=== PATIENT | male | born 1965 | race Caucasian/White ===

== ENCOUNTER 2016-10-09 10:50 | Inpatient (IN) ==
[2016-10-04 14:19] LABS: Appearance,Urine CLEAR; Bilirubin,Urine NEG (NEG); Color,Urine YELLOW; Glucose,Urine (UA) NEGATIVE (NEG); Leukocyte Esterase,Urine NEG /uL (NEG); Nitrate,Urine NEG (NEG); Protein,Urine NEG (NEG); Specific Gravity,Urine 1.027 (1.000-1.035); Urine Blood NEG mg/dL (<0.03); Urobilinogen,Urine NEG (NEG)
[2016-10-04 16:04] LABS: Blood Urea Nitrogen 19 mg/dl (6-20)
[2016-10-04 16:11] LABS: Basophils # (Auto) 0 K/mcL (0.0-0.3); Basophils % (Auto) 0.3 % (0.0-2.0); Eosinophils # (Auto) 0.1 K/mcL (0.0-0.7); Eosinophils % (Auto) 2.2 % (0.0-7.0); Granulocytes % (Auto) 65.2 % (38.0-78.0); Lymphocytes # (Auto) 0.9 K/mcL (1.5-4.8); Mean Corpuscular HGB Conc 33.6 g/dL (31.0-36.0); Mean Corpuscular Hemoglobin 31.6 pg (26.0-34.0); Monocytes # (Auto) 0.8 K/mcL (0.1-0.9); Monocytes % (Auto) 15.3 % (1.0-9.0); Platelet Count 172 K/mcL (140-440); RBC 5.05 M/mcL (4.50-5.90); Red Cell Distribution Width 12.9 % (11.5-14.5)
[~2016-10-09 10:50] MED LIST: CELECOXIB 200 MG CAPSULE PO SCH; KETOROLAC 30 MG, ROPIVACAINE HCL/PF 49.5 ML, EPINEPHrine 0.5 MG, 0.9 % SODIUM CHLORIDE ... IJ ONE; PREGABALIN 150 MG CAPSULE PO SCH; ceFAZolin 1 GM VIAL IV SCH; oxyCODONE 10 MG TAB.ER.12H PO SCH
[2016-10-09] MEDS ORDERED: ONDANSETRON 4 MG/2 ML VIAL IV ONE (12:25)
[2016-10-09] MEDS ORDERED: MIDAZOLAM 5 MG/5 ML VIAL IV ONE (12:25)
[2016-10-09] MEDS ORDERED: ROPIVACAINE HCL/PF 30 ML VIAL IJ ONE (12:25)
[2016-10-09] MEDS ORDERED: LIDOCAINE HCL/PF 100 MG/5 ML SYRINGE IV ONE (12:25)
[2016-10-09] MEDS ORDERED: fentaNYL 250 MCG/5 ML VIAL IV ONE (12:25)
[2016-10-09] MEDS ORDERED: TRANEXAMIC ACID 1,000 MG/10 ML VIAL IV ONE ×2 (12:25→14:36)
[2016-10-09] MEDS ORDERED: DEXAMETHASONE 10 MG/ML VIAL IV ONE (12:25)
[2016-10-09] MEDS ORDERED: PROPOFOL 200 MG/20 ML VIAL IV ONE (12:25)
[2016-10-09] MEDS ORDERED: GENTAMICIN SULFATE 800 MG/20 ML VIAL IR ONE (12:59)
[2016-10-09] MEDS ORDERED: FLUMAZENIL 0.1 MG/ML ML IV PRN (14:04)
[2016-10-09] MEDS ORDERED: ATROPINE SULFATE 0.4 MG/ML VIAL IV PRN (14:04)
[2016-10-09] MEDS ORDERED: ePHEDrine 50 MG/ML AMPUL IV PRN (14:04)
[2016-10-09] MEDS ORDERED: diphenhydrAMINE 50 MG/ML VIAL IV PRN (14:04)
[2016-10-09] MEDS ORDERED: ONDANSETRON 4 MG/2 ML VIAL IV PRN ×2 (14:04→14:36)
[2016-10-09] MEDS ORDERED: NALOXONE HCL 0.4 MG/ML VIAL IV PRN (14:04)
[2016-10-09] MEDS ORDERED: METHOCARBAMOL 1,000 MG/10 ML VIAL IV PRN (14:04)
[2016-10-09] MEDS ORDERED: PROMETHAZINE 25 MG/ML VIAL IV PRN (14:04)
[2016-10-09] MEDS ORDERED: IPRATROPIUM/ALBUTEROL 3 ML AMPUL.NEB NEB PRN (14:04)
[2016-10-09] MEDS ORDERED: BENZOCAINE/MENTHOL 1 LOZENGE PO PRN ×2 (14:04→14:36)
[2016-10-09] MEDS ORDERED: METOPROLOL TARTRATE 5 MG/5 ML VIAL IV PRN (14:04)
[2016-10-09] MEDS ORDERED: MEPERIDINE 25 MG/ML SYRINGE IV PRN (14:04)
[2016-10-09] MEDS ORDERED: LACTATED RINGERS 1,000 ML IV SCH (14:15)
--- NOTE | 2016-10-09 14:35 | Brief Operative Note ---
Date of procedure: 10/09/16 Pre-op diagnosis: left knee osteoarthritis Post-op diagnosis: same Procedure: left total knee arthroplasty Grafts/Implants: Yes Anesthesia: spinal Complications: none Surgeon: Bruce Cardoza Database Manager: Marty Mcghee Estimated blood loss (cc): 100 Tourniquet Time (Minutes): 20 Specimens Removed/Pathology: none sent Condition: stable Disposition: PACU
[2016-10-09] MEDS ORDERED: BISACODYL 10 MG SUPP.RECT PR PRN (14:36)
[2016-10-09] MEDS ORDERED: MAGNESIUM HYDROXIDE 30 ML ORAL.SUSP PO PRN (14:36)
[2016-10-09] MEDS ORDERED: METHOCARBAMOL 750 MG TABLET PO PRN (14:36)
[2016-10-09] MEDS ORDERED: POLYETHYLENE GLYCOL 3350 17 GM PACKET PO PRN (14:36)
[2016-10-09] MEDS ORDERED: FLEETS ADULT ENEMA PR PRN (14:36)
[2016-10-09] MEDS ORDERED: ONDANSETRON ODT 4 MG TABLET SL PRN (14:36)
[2016-10-09] MEDS ORDERED: PROMETHAZINE 25 MG/ML VIAL IM PRN (14:36)
[2016-10-09] MEDS: fentaNYL 100 MCG/2 ML VIAL IV PRN ×4 (15:00→15:08)
[2016-10-09] MEDS: HYDROmorphone 2 MG/ML SYRINGE IV PRN ×7 (15:15→22:15)
--- NOTE | 2016-10-09 15:21 | Operative Note ---
DATE OF OPERATION: 10/09/2016 PREOPERATIVE DIAGNOSIS: Degenerative joint disease, right knee. POSTOPERATIVE DIAGNOSIS: Degenerative joint disease, right knee. PROCEDURE: Right total knee arthroplasty. SURGEON: Trent Cardoza M.D. HUMAN RESOURCES SAFETY MANAGER SURGEON: Marty Mcghee PA-C ANESTHESIA: Spinal with LMA assist. ESTIMATED BLOOD LOSS: 150 mL COMPLICATIONS: None noted. SPECIMENS REMOVED: None. DRAINS: None. TOURNIQUET TIME: 20 minutes at 300 mmHg. IMPLANTS: Depuy Attune tibial insert fixed bearing posterior stabilized size 10, 5 mm AOX, Depuy Attune patella medialized dome, 41 mm cemented AOX, Depuy Attune femoral posterior stabilized size 10 right cemented, Depuy Attune tibial insert fixed bearing size 8 cemented. INDICATIONS: The patient has had a long-standing history of worsening pain in the knee that has failed conservative treatment. Radiographs have confirmed advanced degenerative joint disease. After a long discussion about treatment options, the patient elected to proceed with a knee arthroplasty. The risks and benefits were discussed with the patient in detail including, but not limited to, the risks of anesthesia, problems with the heart or lungs related to anesthesia, infection, compromise or injury to the nerves and blood vessels, deep venous thrombosis, pulmonary embolism, pneumonia, continued pain after surgery, worsening pain or symptoms after surgery, swelling, loss of motion, instability, leg length discrepancy, and need for repeat surgery. DESCRIPTION OF PROCEDURE: The patient was seen in the pre-anesthesia waiting room where all questions were answered and the correct side and site were identified and marked. The patient was transferred to the operating room and administered the anesthetic and given pre-operative antibiotics. A time-out was then called. The extremity was prepped and draped, exsanguinated, and the tourniquet was inflated to 300 mmHg. A midline skin incision was then made with a standard medial parapatellar arthrotomy. Debridement of the menisci, ACL, and PCL was performed followed by balancing releases in the medial lateral plane. We then established intramedullary access to both the femur and tibia in a standard fashion. The femoral guide german was initially placed with the distal femoral guide, pinned into place, and the distal femoral cut was performed and checked with a flat plate. We then turned our attention to the tibia. The intramedullary guide was placed with the proximal tibial cutting block. The block was appropriately positioned off the affected side, varus and valgus was checked with the extra-medullary guide, and the block was pinned into place. The proximal tibial cut was performed and the tibia was prepared for the tibial implant with appropriate rotation. The tibia, femur, and posterior compartment were debrided of osteophytes, loose bodies, and meniscal fragments We then used the gap balancing technique to balance extension with the first two cuts and good balancing was obtained with a 10 millimeter gap block. We turned our attention back to the femur and used the referencing block and implant to size appropriately. Using the gap balancing technique for the flexion space we set our rotation of the femur off the tibial cut. Anesthesia gave the patient 1 gram of Tranexamic Acid via an intravenous route. We placed the 4 in 1 cutting block and made anterior, posterior, and chamfer cuts. Box plasty cuts were then made in a standard fashion for the posterior stabilized prosthesis. We then completed osteophyte release and posterior capsule release from the posterior compartment. Trials were placed and we chose the polyethylene insert thickness that provided the best stability in all planes. With the trials in place, we did a measured resection for a resurfacing patella. We sized the patella and placed the patella trial and performed a lateral facetectomy with the saw and rongeur. Good tracking was obtained. We removed all trials, irrigated and dried all cut surfaces. We cemented the components into place including tibia, femur and patella. We placed a trial liner and held the knee in full extension with the patella compressed while the cement cured. We then removed all excess cement and placed the final polyethylene tibiofemoral component. Irrigation with 3 liters of antibiotic saline was then performed using jet-lavage. We let the tourniquet down and coagulated bleeding vessels. We injected a 100 cubic centimeter volume including Ropivacaine 49.25 cubic centimeters at 5 milligrams per cubic centimeter, Ketorolac 30 milligrams, and Epinephrine 0.5 milligrams into 100 cubic centimeters volume of normal saline. We placed a deep drain and closed the retinaculum with looped #0 Maxon. We closed the subcutaneous tissue and skin in layers out to anva in the skin. A sterile pressure dressing was applied. All needle and sponge counts were correct. The patient was transferred to the recovery room in stable condition. ENA:nick Job ID: [id number] Doc ID: [id number] Trent Cardoza MD
[2016-10-09] MEDS: KETOROLAC 30 MG/ML VIAL IV SCH ×2 (15:54→23:59)
--- NOTE | 2016-10-09 16:01 | XRay Report ---
CLINICAL INFORMATION: Postop total knee prostheses COMPARISON: Preoperative film from 10/18/2014 FINDINGS: Total knee prostheses is anatomically aligned. No osseous abnormality. Periarticular gas and soft tissue swelling seen. IMPRESSION: Negative Interpreted and Authenticated by: Bruce Duncan 10/09/16
[2016-10-09] MEDS: HYDROcodone/APAP 10/325MG TABLET PO PRN ×2 (16:15→20:26)
[2016-10-09] MEDS: 0.9 % SODIUM CHLORIDE 1,000 ML IV SCH (16:51)
[2016-10-09] MEDS: DOCUSATE SODIUM 100 MG CAPSULE PO SCH (20:28)
[2016-10-09] MEDS: ceFAZolin 1 GM VIAL IV SCH (20:29)
[2016-10-09] MEDS: ASPIRIN 325 MG ENTERIC COATED TABLET PO SCH (20:34)
[2016-10-09] MEDS: 0.9 % SODIUM CHLORIDE 10 ML SYRINGE IV SCH (20:35)
[2016-10-09] MEDS ORDERED: SENNOSIDES 1 TABLET PO SCH (21:00)
[2016-10-10] MEDS: 0.9 % SODIUM CHLORIDE 1,000 ML IV SCH (00:11)
[2016-10-10] MEDS: HYDROmorphone 2 MG/ML SYRINGE IV PRN (02:24)
[2016-10-10] MEDS: HYDROcodone/APAP 10/325MG TABLET PO PRN ×3 (04:14→09:57)
[2016-10-10] MEDS: ceFAZolin 1 GM VIAL IV SCH (04:14)
[2016-10-10] MEDS: KETOROLAC 30 MG/ML VIAL IV SCH (05:58)
[2016-10-10] MEDS: 0.9 % SODIUM CHLORIDE 10 ML SYRINGE IV SCH (05:59)
--- NOTE | 2016-10-10 07:51 | Discharge Summary ---
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 Chief Complaint: [] Date of admission: 10/09/16 Discharge date: 10/10/16 Attending physician: Bruce Cardoza Hospitalization Hospital course: Patient had longstanding history of underlying OA. He elected to proceed with total knee. Patient tolerated the procedure well and was taken to PACU in stable condition. He did great through the night with pain under control. He was ambulating more than 500 feet with walker. He was urinating on his own and ready for DC home. He denied any calf pain, chest pain, SOB. His vital signs remained stable. Discharge diagnosis: RIght total knee arthroplasty Reason for admission: right degenerative joint disease Procedures: Right TKA Complications: none Exam - Exam Incision healing: Yes Incision draining: No Incision red: No Incision swollen: No Incision inflamed: No Clean and dry: Yes Weight bearing status: as tolerated Ortho Discharge - TKA - Patient Instructions Diet: Regular Diet Activity: weight bearing as tolerated Total Knee Protocol: For Total Knee: Start ROM KRYS with stationary bike or rocking chair. Work on gaining full extension of knee. Posterior dislocation precautions provided. Hip abductor strengthening and gait training instructions provided. Apply Cryocuff as instructed. Dressing Care: May shower in 2 days Additional Dressing Instructions: Leave mesh in place - Follow Up Plan Disposition: Home, Self-Care Prognosis: Good Rehab Potential: Good I certify that the patient requires SNF services: No Overall status at discharge: patient is progressing back to baseline - Orders For Discharge Prescriptions: Aspirin [Ecotrin] 325 mg PO BID #60 tab.ec Docusate Sodium [Colace] 100 mg PO BID #30 capsule HYDROcodone/APAP 10/325MG [[place] 10/325Mg] 1 - 2 tab PO Q4HP PRN #60 tablet PRN Reason: Pain Pending Studies Resuscitation Status Full Code Diet Regular Diet Start SatOct 09 Dinner Acetaminophen/Hydrocodone Bitart ([place] 10/325mg) 0 tab PO Q4HP PRN PRN Reason: Pain Last Admin: 10/10/16 04:14 Dose: 2 tab Admin: 10/10/16 00:00 Dose: 2 tab Admin: 10/09/16 20:26 Dose: 2 tab Admin: 10/09/16 16:15 Dose: 2 tab Aspirin (Ecotrin) 325 mg PO BID [facility] Last Admin: 10/09/16 20:34 Dose: 325 mg Docusate Sodium (Colace) 100 mg PO BID [facility] Last Admin: 10/09/16 20:28 Dose: 100 mg Hydromorphone HCl (Dilaudid) 0 mg IV Q2HP PRN PRN Reason: Pain Last Admin: 10/10/16 02:24 Dose: 1 mg Admin: 10/09/16 22:15 Dose: 1 mg Admin: 10/09/16 20:25 Dose: 1 mg Admin: 10/09/16 18:01 Dose: 1 mg Ketorolac Tromethamine (Toradol) 30 mg IV Q6 [facility] Stop: 10/11/16 12:01 Last Admin: 10/10/16 05:58 Dose: 30 mg Admin: 10/09/16 23:59 Dose: 30 mg Admin: 10/09/16 15:54 Dose: 30 mg Methocarbamol (Robaxin) 750 mg PO Q6HP PRN PRN Reason: Muscle Spasm Last Admin: 10/09/16 22:16 Dose: 750 mg Senna (Senokot) 2 tab PO HS [facility] Last Admin: 10/09/16 20:34 Dose: Not Given Sodium Chloride (Saline Flush) 10 ml IV Q8 [facility] Last Admin: 10/10/16 05:59 Dose: 10 ml Admin: 10/09/16 20:35 Dose: Not Given Shift Summary 10/10/16 04:41 Shift Summary by Griselda Freeman Slept off & on tonight. Had had PO pain meds every 4 hours with IV meds for breakthrough. Is trying to not use the IV meds so he can maybe go home today. Right foot was numb until about 0200, then he ambulated to the w/FWW w/o problems. Using CPM. Initialized on 10/10/16 04:41 - END OF NOTE
[2016-10-10] MEDS: DOCUSATE SODIUM 100 MG CAPSULE PO SCH (09:53)
[2016-10-10] MEDS: ASPIRIN 325 MG ENTERIC COATED TABLET PO SCH (09:53)
== END 2016-10-10 10:20 | disposition home or self-care (01) | DRG 470 ==
LOC: MEDSUR 10:50
PROVIDERS: ADMIT Orthopaedic Surgery Sports Medicine; ATTEND Orthopaedic Surgery Sports Medicine